=== PATIENT | female | born 1930 | race Caucasian/White ===

== ENCOUNTER 2018-01-26 18:00 | Emergency (ER) | payer MEDICARE, OTHER ==
[2018-01-26 19:23] LABS: Hematocrit 39 % (35-47); Hemoglobin 13.3 g/dl (12.0-16.0); Mean Corpuscular HGB Conc 34 g/dl (31-36); Mean Corpuscular Hemoglobin 29 pg (27-31); Mean Corpuscular Volume 87 fL (80-97); Mean Platelet Volume 7.4 um3 (7.4-10.4); Platelet Count 268 10^3/ul (150-450); Red Blood Count 4.52 10^6/ul (4.00-5.40); Red Cell Distribution Width 15 % (10.5-15); White Blood Count 6.8 10^3/ul (3.5-10.8)
[2018-01-26 19:24] LABS: ABS Basophils 0.1 10^3/ul (0-0.2); ABS Eosinophils 0.1 10^3/ul (0-0.6); ABS Lymphocytes 1.7 10^3/ul (1.0-4.8); ABS Monocytes 0.6 10^3/ul (0-0.8); ABS Neutrophils 4.3 10^3/ul (1.5-7.7)
[2018-01-26 19:34] LABS: Urine Appearance Clear; Urine Blood Negative (Negative); Urine Color Yellow; Urine Ketones Negative (Negative); Urine Protein Negative (Negative); Urine Specific Gravity 1.011 (1.010-1.030); Urine Urobilinogen Negative (Negative)
[2018-01-26 19:37] LABS: EGFR Non-African American 62.6 (>60)
[2018-01-26 20:15] LABS: ABS Nucleated RBC 0 10^3/ul; Eosinophil % 1.4 % (0-6); Lymphocyte % 25.2 % (25-47)
[2018-01-26 20:16] LABS: Nucleated Red Blood Cells % 0
[2018-01-26] MEDS ORDERED: amLODIPine TAB* 5 MG PO ONE ×2 (20:38→21:18)
--- NOTE | 2018-01-26 22:06 | ED ---
Stella Green Elizabeth, scribed for Pascual Garcia MD on 01/26/18 at 1910 . Hypertension - HPI Summary HPI Summary: This patient is an 87 year old F BIBA to [facility] with a chief complaint of hypertension since earlier today. The patient notes that she felt flushed, dizzy , and unwell earlier, then she had an anxiety attack and took Xanax. The patient called the ambulance after she still felt unwell and EMS informed her that she had elevated BP, which is unusual for her. The patient reports that she felt similar symptoms yesterday as well. The patient reports that she felt like she could have passed out. The patient rates the pain 0/10 in severity. Symptoms aggravated by nothing. Symptoms alleviated by nothing. Patient denies weakness or syncope. The patient notes that she has hx of AFib and takes Xarelto and Metoprolol. - History of Current Complaint Chief Complaint: EDHypertension Stated Complaint: POSSIBLE HIGH BP Hx Obtained From: Patient Onset/Duration: Started Hours Ago, Atraumatic, Resolved Timing: Lasting Hours Aggravating Factor(s): Nothing Alleviating Factor(s): Nothing Associated Signs & Symptoms: Dizziness, Other: - feeling flushed - Allergies/Home Medications Allergies/Adverse Reactions: Allergies Allergy/AdvReac Type Severity Reaction Status Date / Time Penicillins Allergy Rash Verified 01/26/18 18:18 phenobarbital Allergy Rash Verified 01/26/18 18:18 Sulfa (Sulfonamide Allergy Rash Verified 01/26/18 18:18 Antibiotics) Home Medications: Home Medications Levothyroxine Sodium 110 mcg PO DAILY 01/26/18 [History Confirmed 01/26/18] Metoprolol Tartrate 50 mg PO DAILY 01/26/18 [History Confirmed 01/26/18] Pepcid 40 mg PO DAILY 01/26/18 [History Confirmed 01/26/18] Prevacid SOLUTAB* 30 mg PO BID 01/26/18 [History Confirmed 01/26/18] Xarelto 20 mg 20 mg PO DAILY 01/26/18 [History Confirmed 01/26/18] Zomig 2.5 mg PO DAILY PRN 01/26/18 [History Confirmed 01/26/18] PMH/Surg Hx/FS Hx/Imm Hx Cardiovascular History: Reports: Hx Atrial Fibrillation Respiratory History: Denies: Hx Chronic Obstructive Pulmonary Disease (COPD) Opthamlomology History: Denies: Hx Legally Blind EENT History: Denies: Hx Deafness Infectious Disease History: No Infectious Disease History: Denies: Traveled Outside the [place] in Last 30 Days - Family History Known Family History: Positive: None - patient denies relevant FHx - Social History Alcohol Use: None Substance Use Type: Reports: None Smoking Status (MU): Never Smoked Tobacco Review of Systems Positive: Skin Diaphoresis - feeling flushed Negative: Epistaxis Negative: Cough Neurological: Other - dizziness Positive: Anxious All Other Systems Reviewed And Are Negative: Yes Physical Exam - Summary Physical Exam Summary: Appearance: Well-appearing, Well-nourished Skin: Warm Eyes: Normal ENT: Normal Neck: Supple, nontender Respiratory: Clear to auscultation Cardiovascular: Regular rate, regular rhythm. Normal S1, S2. Abdomen: Soft, nontender Musculoskeletal: Normal, Strength/ROM Intact Neurological: Normal, A&Ox3 Psychiatric: Normal General: No acute distress Triage Information Reviewed: Yes Vital Signs On Initial Exam: Initial Vitals Temp Pulse Resp BP Pulse Ox 98.8 F 74 16 173/86 98 01/26/18 18:05 01/26/18 18:05 01/26/18 18:05 01/26/18 18:05 01/26/18 18:05 Vital Signs Reviewed: Yes Diagnostics - Vital Signs Vital Signs Temp Pulse Resp BP Pulse Ox 01/26/18 18:05 98.8 F 74 16 173/86 98 - Laboratory Lab Results: Lab Results 01/26/18 01/26/18 01/26/18 Range/Units 19:14 19:14 19:19 WBC 6.8 (3.5-10.8) 10^3/ul RBC 4.52 (4.00-5.40) 10^6/ul Hgb 13.3 (12.0-16.0) g/dl Hct 39 (35-47) % MCV 87 (80-97) fL MCH 29 (27-31) pg MCHC 34 (31-36) g/dl RDW 15 (10.5-15) % Plt Count 268 (150-450) 10^3/ul MPV 7.4 (7.4-10.4) um3 Neut % (Auto) 63.5 (38-83) % Lymph % (Auto) 25.2 (25-47) % [place] % (Auto) 9 H (0-7) % Eos % (Auto) 1.4 (0-6) % Baso % (Auto) 0.9 (0-2) % Absolute Neuts (auto) 4.3 (1.5-7.7) 10^3/ul Absolute Lymphs (auto) 1.7 (1.0-4.8) 10^3/ul Absolute Monos (auto) 0.6 (0-0.8) 10^3/ul Absolute Eos (auto) 0.1 (0-0.6) 10^3/ul Absolute Basos (auto) 0.1 (0-0.2) 10^3/ul Absolute Nucleated RBC 0 10^3/ul Nucleated RBC % 0 Sodium 140 (135-145) mmol/L Potassium 4.4 (3.5-5.0) mmol/L Chloride 102 (101-111) mmol/L Carbon Dioxide 31 (22-32) mmol/L Anion Gap 7 (2-11) mmol/L BUN 23 (6-24) mg/dL Creatinine 0.86 (0.51-0.95) mg/dL Est GFR ( Amer) 75.7 (>60) Est GFR (Non-Af Amer) 62.6 (>60) BUN/Creatinine Ratio 26.7 H (8-20) Glucose 118 H (70-100) mg/dL Calcium 9.0 (8.6-10.3) mg/dL Total Bilirubin 0.30 (0.2-1.0) mg/dL AST 26 (13-39) U/L ALT 14 (7-52) U/L Alkaline Phosphatase 61 (34-104) U/L Total Protein 6.6 (6.4-8.9) g/dL Albumin 3.9 (3.2-5.2) g/dL Globulin 2.7 (2-4) g/dL Albumin/Globulin Ratio 1.4 (1-3) Urine Color Yellow Urine Appearance Clear Urine pH 7.0 (5-9) Ur Specific [place] 1.011 (1.010-1.030) Urine Protein Negative (Negative) Urine Ketones Negative (Negative) Urine Blood Negative (Negative) Urine Nitrate Negative (Negative) Urine Bilirubin Negative (Negative) Urine Urobilinogen Negative (Negative) Ur Leukocyte Esterase 1+ A (Negative) Urine WBC (Auto) Trace(0-5/hpf) (Absent) Urine RBC (Auto) Absent (Absent) Ur Squamous Epith Cells Present A (Absent) Urine Bacteria Absent (Absent) Urine Glucose Negative (Negative) Urine Ascorbic Acid * A (Negative) Result Diagrams: 01/26/18 19:14 01/26/18 19:14 Lab Statement: Any lab studies that have been ordered have been reviewed, and results considered in the medical decision making process. - EKG 19:03 Cardiac Rate: NL - at 69 BPM EKG Rhythm: Sinus Rhythm ST Segment: Normal EKG Interpretation: NSR at 69 bpm, no ST changes Hypertension Course/Dx - Course Course Of Treatment: Pt was anxious today and felt flushed wiht elevated SBP 170 -180's, did take her xanax but did NOT take her PM Toprol, so pt will be d/c'd after BP under control. Pt signed out to Dr Hancock - Diagnoses Provider Diagnoses: Malignant hypertension Discharge - Sign-Out/Discharge Documenting (check all that apply): Discharge/Admit/Transfer - Discharge Plan Condition: Stable Disposition: HOME Discharge Disposition Comment: discharge home Patient Education Materials: Hypertension (ED) Referrals: Yamile Cabello MD [Primary Care Provider] - 2 Days Additional Instructions: Follow up with primary care physician in 2 days. Return to the emergency department with any new or worsening symptoms. - Billing Disposition and Condition Condition: STABLE Disposition: Home The documentation as recorded by the Stella woods Elizabeth accurately reflects the service I personally performed and the decisions made by , Pascual Garcia MD.
--- NOTE | 2018-01-26 22:59 | ED ---
Deysi Green Emily, javieribed for Jenelle Hancock MD on 01/26/18 at 2255 . Progress - Progress Note Progress Note: Patient's blood pressure has improved, and she is stable for discharge home. Course/Dx - Course Course Of Treatment: Pt was anxious today and felt flushed wiht elevated SBP 170 -180's, did take her xanax but did NOT take her PM Toprol. The patient's blood pressure has reduced, and she is stable for discharge home. The patient will be discharged home with follow up from PCP. The patient is agreeable with this plan. - Diagnoses Provider Diagnoses: Malignant hypertension Discharge - Sign-Out/Discharge Documenting (check all that apply): Discharge/Admit/Transfer - Discharge home - Discharge Plan Condition: Stable Disposition: HOME Patient Education Materials: Hypertension (ED) Referrals: Yamile Cabello MD [Primary Care Provider] - 2 Days Additional Instructions: Follow up with primary care physician in 2 days. Return to the emergency department with any new or worsening symptoms. The documentation as recorded by the Deysi woods Emily accurately reflects the service I personally performed and the decisions made by Santi portillo Abdul, MD.
[2018-01-26 23:40] VITALS: BP 163/65
== END 2018-01-26 23:40 | disposition home or self-care (01) ==
LOC: ED 18:00
DX: I10 Essential (primary) hypertension (principal); F41.9 Anxiety disorder, unspecified; I48.91 Unspecified atrial fibrillation; Z79.01 Long term (current) use of anticoagulants; Z88.0 Allergy status to penicillin; Z88.2 Allergy status to sulfonamides; Z88.8 Allergy status to other drugs, medicaments and biological substances
CPT/HCPCS: 36415; 80053; 81003; 81015; 84484; 85025; 87086; 93005; 99284; A9270-GY

== ENCOUNTER 2018-02-26 19:27 | Emergency (ER) | payer MEDICARE, OTHER ==
--- OUTSIDE RECORDS SUMMARY | 2018-02-26 19:52 | XMS REPORT ---
:1930 External Reference #:[id number] Author Organization [employer] Address [address] [place] [address] Phone [phone] Care Team Providers Name Role Phone Yamile Cabello M.D. 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 Family History Date Family Member(s) Problem(s) Comments Father No Current Problems Mother No Current Problems Aunt Macular Degeneration Social History Type Date Description Comments Marital Status Legal Status: Work Status Retired teacher ETOH Use Rarely consumes alcohol Smoking Patient has never smoked Recreational Drug Use Denies Drug Use Daily Caffeine Consumes on average 8oz of iced tea per day Allergies, Adverse Reactions, Alerts Date Description Reaction Status Severity Comments 10/18/2017 Penicillin active 10/18/2017 Sulfa Antibiotics active 10/18/2017 Phenobarbital active Medications Medication Date Status Form Strength Qnty SIG Indications Ordering Provider Prevacid Solutab Active Tablets 30mg Take One Unknown 000 Dispers Tablet By Mouth Twice Daily Zolmitriptan Active Tablets 2.5mg Take One Unknown 000 Tablet By Mouth Every Day as Directed Famotidine Active Tablets 40mg Take One Unknown 000 Tablet By Mouth Every Bedtime Levothyroxine Active Tablets 112mcg Take One Unknown Sodium 000 Tablet By Mouth Every Day Xarelto Active Tablets 20mg Take One Unknown 000 Tablet By Mouth Every Day Metoprolol Active Tablets 50mg Take One Unknown Succinate ER 000 ER 24HR Tablet By Mouth Every Day Xanax Active Tablets 0.25mg Unknown 000 Clarinex Active Tablets 5mg Unknown 000 Medications Administered in Office Medication Date Status Form Strength Qnty SIG Indications Ordering Provider Avastin Administered Injection Michael Bevacizumab Reyna Zuluaga M.D. Avastin Administered Injection Michael Bevacizumab Reyna Zuluaga M.D. Avastin Administered Injection Michael Bevacizumab Reyna Zuluaga M.D. Vital Signs Date Vital Result Comment 01/29/2018 BP Systolic 100 mmHg BP Diastolic 75 mmHg 12/18/2017 BP Systolic 132 mmHg BP Diastolic 68 mmHg Heart Rate 72 /min Respiratory Rate 16 /min 11/13/2017 BP Systolic 151 mmHg BP Diastolic 70 mmHg Heart Rate 64 /min Respiratory Rate 16 /min Results Description No Information Procedures Date CPT Code Description Status 01/29/2018 42572 Injection Intravitreal Of A Pharmacologic Agent Completed 12/18/2017 13275 Injection Intravitreal Of A Pharmacologic Agent Completed 11/13/2017 51062 Injection Intravitreal Of A Pharmacologic Agent Completed 11/07/2017 44780 Scanning Computerized Opthalmic Diagnostic Posterior Completed Seg Retina 11/07/2017 26523 New Patient Comprehensive Exam Completed Plan of Care 02/11/2018 - Michael Zuluaga M.D.[id number] Exdtve age-rel mclr degn, left eye, with actv chrdl neovasComments:Smoking can increase the risk of developing or worsening any eye related disease, as well as affect your overall health. If you are a smoker, we strongly recommend that you quit.If you are not a smoker, we strongly recommend that you do not start. Dr. Zuluaga can detect changes in your Macular Degeneration that require treatment in your left eye. It is very important to keep all of your appointments and follow Dr. Zuluaga's instructions. If you have any questions, please call our office.Follow up:See Procedure Order [id number] Nexdtve age-related mclr degn, right eye, intermed dry stageComments:You have Macular Degeneration. Check your Amsler Grid, with each eye separately, and take the AREDS II formula vitamins. If you notice any changes in your vision, please call the office and schedule anappointment to see any of the doctors here.H35.81 Retinal edema
[2018-02-26] MEDS ORDERED: Morphine VIAL* 4 MG/ML VIAL (1 ml vial) IV ONE ×2 (22:04→23:30)
[2018-02-26] MEDS ORDERED: Metoclopramide IV* 5 MG/ML 2 ML VIAL IV SLOW PU ONE (22:04)
[2018-02-26] MEDS ORDERED: diPHENhydraMINE IV* 50 MG/ML 1 ml VIAL (BENADRYL) SLOW PUSH ONE (22:04)
[2018-02-26] MEDS ORDERED: Labetalol IV* 5 MG/ML 20 ML VIAL IV PUSH ONE (22:05)
--- NOTE | 2018-02-26 22:06 | ED ---
Headache - HPI Summary HPI Summary: This is chuck Elizondo documenting for attending Dr. Santi Beaulieu This patient is an 88 year old F presenting to [facility] with a chief complaint of KENNEDY since 02/24/18. PMHx migraines. Pt states she took Zomig 02/24/18 , pain came back next day, so she took it again, but with little sx alleviations this time. She endorses 3x days of HAs unusual for her regarding migraines. She notes the KENNEDY is located on the left sided parietal and occipital regions. Pt denies N/V, weakness, numbness, photophobia. PMHx HTN, Afib. Pt lives alone at [facility]. Blood pressure currently at 214/83. - History Of Current Complaint Chief Complaint: EDHeadache Stated Complaint: HEADACHE Time Seen by Provider: 02/26/18 21:43 Hx Obtained From: Patient Onset/Duration: Started days ago, Still Present Initially Headache Was: Moderate Currently Pain Is: Current Pain Scale(0-10)= - 7 Timing: Constant Character: Migraine Location of Headache: Parietal, Occipital Aggravating Factor: Nothing Allevating Factors: Medication - zomig, less help than usual though - Allergies/Home Medications Allergies/Adverse Reactions: Allergies Allergy/AdvReac Type Severity Reaction Status Date / Time Penicillins Allergy Rash Verified 01/26/18 18:18 phenobarbital Allergy Rash Verified 01/26/18 18:18 Sulfa (Sulfonamide Allergy Rash Verified 01/26/18 18:18 Antibiotics) Home Medications: Home Medications Famotidine TAB 40 MG(NF) [Pepcid TAB 40 MG(NF)] 40 mg PO DAILY 02/26/18 [ History Confirmed 02/26/18] Lansoprazole CAP (NF) [Prevacid CAP (NF)] 30 mg PO BID 02/26/18 [History Confirmed 02/26/18] Levothyroxine TAB* [Synthroid TAB*] 100 mcg PO DAILY 02/26/18 [History Confirmed 02/26/18] Metoprolol Succinate XL TAB* [Toprol XL TAB*] 50 mg PO DAILY 02/26/18 [History Confirmed 02/26/18] Rivaroxaban TAB(*) [Xarelto 20 mg] 20 mg PO DAILY 02/26/18 [History Confirmed ] ZOLMitriptan [Zomig] 2.5 mg PO DAILY PRN 02/26/18 [History Confirmed 02/26/18] PMH/Surg Hx/FS Hx/Imm Hx Cardiovascular History: Reports: Hx Atrial Fibrillation Respiratory History: Denies: Hx Chronic Obstructive Pulmonary Disease (COPD) Sensory History: Reports: Hx Contacts or Glasses Denies: Hx Legally Blind, Hx Deafness Opthamlomology History: Reports: Hx Contacts or Glasses Denies: Hx Legally Blind EENT History: Denies: Hx Deafness Neurological History: Reports: Hx Migraine - Immunization History Date of Tetanus Vaccine: utd Date of Influenza Vaccine: fall 2016 Infectious Disease History: No Infectious Disease History: Denies: Traveled Outside the [place] in Last 30 Days - Family History Known Family History: Positive: None - patient denies relevant FHx - Social History Occupation: Retired Lives: Alone Alcohol Use: None Substance Use Type: Reports: None Smoking Status (MU): Never Smoked Tobacco Review of Systems Negative: Fever Negative: Photophobia Negative: Vomiting, Nausea Positive: Headache. Negative: Weakness, Numbness All Other Systems Reviewed And Are Negative: Yes Physical Exam - Summary Physical Exam Summary: VITAL SIGNS: Reviewed. GENERAL: Patient is a well-developed and nourished (MALE OR FEMALE) who is lying comfortable in the stretcher. Patient is not in any acute respiratory distress. HEAD AND FACE: No signs of trauma. No ecchymosis, hematomas or skull depressions. No sinus tenderness. No temporal tenderness. EYES: PERRLA, EOMI x 2, No injected conjunctiva, no nystagmus. EARS: Hearing grossly intact. Ear canals and tympanic membranes are within normal limits. MOUTH: Oropharynx within normal limits. NECK: Supple, trachea is midline, no adenopathy, no JVD, no carotid bruit, no c- spine tenderness, neck with full ROM. CHEST: Symmetric, no tenderness at palpation LUNGS: Clear to auscultation bilaterally. No wheezing or crackles. CVS: Regular rate and rhythm, S1 and S2 present, no murmurs or gallops appreciated. ABDOMEN: Soft, non-tender. No signs of distention. No rebound no guarding, and no masses palpated. Bowel sounds are normal. EXTREMITIES: FROM in all major joints, no edema, no cyanosis or clubbing. NEURO: Alert and oriented x 3. No acute neurological deficits. Speech is normal and follows commands. SKIN: Dry and warm Triage Information Reviewed: Yes Vital Signs On Initial Exam: Initial Vitals Temp Pulse Resp BP Pulse Ox 98.2 F 70 16 187/81 98 02/26/18 19:36 02/26/18 19:36 02/26/18 19:36 02/26/18 19:36 02/26/18 19:36 Vital Signs Reviewed: Yes Diagnostics - Vital Signs Vital Signs Temp Pulse Resp BP Pulse Ox 02/26/18 19:36 98.2 F 70 16 187/81 98 - Laboratory Lab Statement: Any lab studies that have been ordered have been reviewed, and results considered in the medical decision making process. - CT Brain CT Interpretation: No Acute Changes CT Interpretation Completed By: ED Physician - No acute abnormalities. Re-Evaluation - Re-Evaluation First Eval Re-Evaluation Time: 00:00 Change: Improved Comment: KENNEDY improved a lot. BP improved. Headache Course/Dx - Course Course Of Treatment: An 88-year-old F presents to the ED with a CC of KENNEDY for 3 days. (+) "intense" pain, located left sided parietal and occipital. (-) N/V, photophobia, weakness, numbness. PMHx migraines, AFib, HTN. A CT brain reveals no acute abnormalities. In the ED course, pt was given benadryl, trandate, reglan, morphine. - Diagnoses Provider Diagnoses: Headache, Hypertension Discharge - Sign-Out/Discharge Documenting (check all that apply): Patient Departure - discharge - Discharge Plan Condition: Stable Disposition: HOME Patient Education Materials: General Headache (ED), Hypertension (ED) Referrals: Yamile Cabello MD [Primary Care Provider] - 2 Days Additional Instructions: Return to the emergency department for any new or worsening symptoms. You are advised to increase your metoprolol dose from 50 mg to 75 mg. - Billing Disposition and Condition Condition: STABLE Disposition: Home
[2018-02-26] MEDS ORDERED: Morphine INJ* 2 MG/ML 1 ML SYRINGE (TWO MG - NEW SYRINGE VERSION) ONE (22:19)
[2018-02-26 22:54] LABS: ABS Basophils 0.1 10^3/ul (0-0.2); ABS Eosinophils 0.1 10^3/ul (0-0.6); ABS Lymphocytes 2.7 10^3/ul (1.0-4.8); ABS Monocytes 0.9 10^3/ul (0-0.8); ABS Neutrophils 5.7 10^3/ul (1.5-7.7); ABS Nucleated RBC 0 10^3/ul; Eosinophil % 1.1 % (0-6); Hematocrit 40 % (35-47); Hemoglobin 13.3 g/dl (12.0-16.0); Lymphocyte % 28.7 % (25-47); Mean Corpuscular HGB Conc 33 g/dl (31-36); Mean Corpuscular Hemoglobin 29 pg (27-31); Mean Corpuscular Volume 87 fL (80-97); Mean Platelet Volume 7.3 um3 (7.4-10.4); Nucleated Red Blood Cells % 0; Platelet Count 254 10^3/ul (150-450); Red Blood Count 4.57 10^6/ul (4.00-5.40); Red Cell Distribution Width 14 % (10.5-15); White Blood Count 9.4 10^3/ul (3.5-10.8)
[2018-02-26 23:02] LABS: INR 1.76 (0.77-1.02)
[2018-02-26 23:10] LABS: EGFR Non-African American 74.2 (>60)
[2018-02-27 00:17] VITALS: BP 130/66
--- NOTE | 2018-02-27 07:46 | RAD ---
INDICATION: Headaches COMPARISON: None TECHNIQUE: Noncontrast axial source images were acquired from the skull base to the vertex. FINDINGS: Ventricles/sulci: The ventricles and cisterns are normal in size and configuration for age. Brain parenchyma: There is no focal parenchymal finding, evidence of intracranial mass, or intracranial mass effect. There are minor chronic microvascular ischemic changes. Intracranial hemorrhage:None. Extra-axial spaces: There are no abnormal extra axial fluid collections or evidence of extra-axial mass. Calvarium: There is no calvarial fracture or other calvarial abnormality. Scalp: There is no evidence of scalp or extracalvarial soft tissue abnormality. Paranasal sinuses/mastoid: The paranasal sinuses and mastoid air cells are clear. Other: None. IMPRESSION: NO ACUTE INTRACRANIAL FINDINGS.
== END 2018-02-27 00:43 | disposition home or self-care (01) ==
LOC: ED 19:27
DX: R51 Headache (principal); I10 Essential (primary) hypertension
CPT/HCPCS: 36415; 70450; 80053; 85025; 85610; 85730; 96374; 96375; 99284; J1200; J2270; J2765

== ENCOUNTER 2019-08-26 13:34 | Emergency (ER) | payer MEDICARE, OTHER ==
[2019-08-26 13:59] LABS: ABS Eosinophils 0.1 10^3/ul (0-0.6); ABS Lymphocytes 1.8 10^3/ul (1.0-4.8); ABS Monocytes 0.5 10^3/ul (0-0.8); ABS Neutrophils 3.9 10^3/ul (1.5-7.7); Eosinophil % 2.2 %; Hematocrit 36 % (35-47); Hemoglobin 12.1 g/dL (12.0-16.0); Mean Corpuscular HGB Conc 34 g/dL (31-36); Mean Corpuscular Hemoglobin 30 pg (27-31); Mean Corpuscular Volume 91 fL (80-97); Mean Platelet Volume 7.2 fL (7.4-10.4); Platelet Count 256 10^3/uL (150-450); Red Blood Count 3.99 10^6 /uL (3.70-4.87); Red Cell Distribution Width 14 % (10-15); White Blood Count 6.5 10^3/uL (3.5-10.8)
[2019-08-26 14:03] LABS: INR 1.07 (0.82-1.09)
--- NOTE | 2019-08-26 14:05 | ED ---
HPI Chest Pain - HPI Summary HPI Summary: The patient is an 89 y/o female presenting to [facility] accompanied by son with a chief complaint of right anterior CP onset around 11:00 this morning but has since resolved in the last hour and a half. She reports that she had been out running errands this morning and then once she got home, she developed an intermittent throbbing sensation in the right chest that lasted for approximately two hours before completely resolving. She had Tylenol to no relief, and she also took Xanax, which may have helped to relieve the pain. She denies any SOB with the episodes. She does not usually experience CP with ambulating. She has not experienced this pain before. She has a history of atrial fibrillation, but this pain was different. She has not had a recent stress test, but she had negative results the last time she had one. Her special delivery messenger is Dr. Pittman, who she has an appointment with in October 2019. PMHx : Xarelto use, cancer of the lung, thyroid, and colon. Nonsmoker, no EtOH, no substance use. Medications reviewed. Allergies noted. - History of Current Complaint Chief Complaint: EDChestWallPain Time Seen by Provider: 08/26/19 13:48 Hx Obtained From: Patient Onset/Duration: Started Hours Ago, Resolved Time of Onset: 11:00 Timing: Intermittent Initial Severity: Moderate Current Severity: None Pain Intensity: 0 Pain Scale Used: 0-10 Numeric Chest Pain Location: Right Anterior Chest Pain Radiates: No Character: Other: - throbbing Aggravating Factor(s): Nothing Alleviating Factor(s): Other: - 1/2 Xanax may have helped Associated Signs and Symptoms: Positive: Chest Pain. Negative: Shortness of Breath - Allergy/Home Medications Allergies/Adverse Reactions: Allergies Allergy/AdvReac Type Severity Reaction Status Date / Time Penicillins Allergy Rash Verified 06/19/19 10:19 phenobarbital Allergy Rash Verified 06/19/19 10:19 Sulfa (Sulfonamide Allergy Rash Verified 06/19/19 10:19 Antibiotics) Home Medications: Home Medications Desloratadine/Pseudoephedrine [Clarinex-D 12 Hour] 1 tab PO DAILY PRN 08/26/19 [ History Confirmed 08/26/19] Lansoprazole CAP (NF) [Prevacid CAP (NF)] 30 mg PO BID 08/26/19 [History Confirmed 08/26/19] Levothyroxine TAB* [Synthroid TAB*] 88 mcg PO QAM 08/26/19 [History Confirmed ] Metoprolol Succinate XL TAB* [Toprol XL TAB*] 50 mg PO DAILY 08/26/19 [History Confirmed 08/26/19] ZOLMitriptan [Zomig] 2.5 mg PO BID PRN 08/26/19 [History Confirmed 08/26/19] PMH/Surg Hx/FS Hx/Imm Hx Endocrine/Hematology History: Denies: Hx Diabetes Cardiovascular History: Reports: Hx Atrial Fibrillation, Other Cardiovascular Problems/Disorders - 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 Denies: Hx Hypertension, Hx Pacemaker/ICD Respiratory History: Denies: Hx Chronic Obstructive Pulmonary Disease (COPD) History: Denies: Hx Dialysis Musculoskeletal History: Reports: Other Musculoskeletal History - cervical Sensory History: Reports: Hx Contacts or Glasses, Hx Macular Degeneration, Hx Hearing Aid - have new hearing aides Denies: Hx Legally Blind, Hx Deafness Opthamlomology History: Reports: Hx Contacts or Glasses, Hx Macular Degeneration Denies: Hx Legally Blind Neurological History: Reports: Hx Migraine Comment Only: Other Neuro Impairments/Disorders - PAIN CLINIC PT Psychiatric History: Reports: Hx Anxiety Denies: Hx Panic Disorder - Cancer History Cancer Type, Location and Year: LUNG, THYROID, COLON Hx Chemotherapy: No Hx Radiation Therapy: No - Surgical History Surgery Procedure, Year, and Place: HYSTERECTOMY. 1990 COLON RESECTION - CANCER. 2013 THYROIDECTOMY- CANCER. 2013 - TUMOR - REMOVED FROM Lt.LUNG - ENCAPSULATED - CANCER - NO FURHTER TREATMENT NEEDED - Immunization History Date of Tetanus Vaccine: utd Date of Influenza Vaccine: fall 2016 Infectious Disease History: No Infectious Disease History: Denies: Traveled Outside the [place] in Last 30 Days - Family History Known Family History: Negative: Cardiac Disease, Hypertension, Diabetes - Social History Alcohol Use: None Hx Substance Use: No Substance Use Type: Reports: None Hx Tobacco Use: No Smoking Status (MU): Never Smoked Tobacco Review of Systems Positive: Chest Pain - right anterior throbbing (resolved) Negative: Shortness Of Breath All Other Systems Reviewed And Are Negative: Yes Physical Exam - Summary Physical Exam Summary: Constitutional: Well-developed, Well-nourished, Alert. (-) Distressed Skin: Warm, Dry HENT: Normocephalic; Atraumatic Eyes: Conjunctiva normal Neck: Musculoskeletal ROM normal neck. (-) JVD, (-) Stridor, (-) Nuchal rigidity Cardio: Rhythm regular, rate normal, Heart sounds normal; Intact distal pulses; Radial pulses are 2+ and symmetric. (-) Murmur Pulmonary/Chest wall: Effort normal. (-) Respiratory distress, (-) Wheezes, (-) Rales Abd: Soft, (-) tenderness, (-) Distension, (-) Guarding, (-) Rebound Musculoskeletal: (-) Edema Lymph: (-) Cervical adenopathy Neuro: Alert, Oriented x3 Psych: Mood and affect Normal Triage Information Reviewed: Yes Vital Signs On Initial Exam: Initial Vitals Temp Pulse Resp BP Pulse Ox 97.9 F 69 16 172/60 98 08/26/19 13:40 08/26/19 13:40 08/26/19 13:40 08/26/19 13:40 08/26/19 13:40 Vital Signs Reviewed: Yes Procedures - Sedation Patient Received Moderate/Deep Sedation with Procedure: No Diagnostics - Vital Signs Vital Signs Temp Pulse Resp BP Pulse Ox 08/26/19 13:40 97.9 F 69 16 172/60 98 - Laboratory Result Diagrams: 08/26/19 13:43 08/26/19 13:43 Lab Statement: Any lab studies that have been ordered have been reviewed, and results considered in the medical decision making process. - Radiology CXR Radiology Interpretation Completed By: Radiologist Summary of Radiographic Findings: Impression: 1. Postsurgical changes, no evidence for acute finding. 2. COPD. ED physician has reviewed this report. - EKG 1336 Cardiac Rate: NL - 66 BPM EKG Rhythm: Sinus Rhythm EKG Comparison: No Significant Change - Compared to 01/26/18, no significant change Summary of EKG Findings: An EKG at 1336 reveals normal sinus rhythm at 66 BPM, T -wave inversions in lead III. Compared to 01/26/18, no significant change. ED physician has reviewed and interpreted this EKG. 1711 Cardiac Rate: NL - 66 BPM EKG Rhythm: Sinus Rhythm Summary of EKG Findings: An EKG at 1711 reveals normal sinus rhythm at 66 BPM, no new changes from previous. ED physician has reviewed and interpreted this EKG. Re-Evaluation - Re-Evaluation First Eval Re-Evaluation Time: 15:50 Comment: patient becoming hypertensive, will administer home meds Second Eval Re-Evaluation Time: 17:25 Comment: neg repeat trop, discussed d/c plan Chest Pain Course/Dx - Course Course Of Treatment: 89 y/o F w hx HTN p/w episode of R sided CP that occured at rest. On arrival to ED, BP elevated but denies CP. Last episode of CP around 1 PM. - ddx includes: most likely atypical CP. ACS - no new EKG changes, occured at rest, trop neg x2. Patient does not want to stay for further workup, was willing to stay for second troponin. Lower suspicion. PNA -no leukocytosis , no cough, no PNA on xray. Dissection - does not describe typical tearing CP, CXR w/o mediastinal widening, low suspicion. PTX - CXR w/o PTX, no GEMMA. Patient did not have any further episodes of CP, discharged to home w son. - Diagnoses Provider Diagnoses: Chest pain, Hypertension Discharge ED - Sign-Out/Discharge Documenting (check all that apply): Patient Departure - Patient will be discharged home. - Discharge Plan Condition: Stable Disposition: HOME Patient Education Materials: Chest Pain (ED), Hypertension (ED) Referrals: Taylor Jean MD [Primary Care Provider] - 3 Days Additional Instructions: You were seen in the emergency department for chest pain. Your EKG (heart tracing), labs and chest x-ray did not show any cause for pain. Important that you follow up with you primary care doctor in the next 1-2 days to help schedule an outpatient stress test. Please return to the emergency department for continued chest pain, trouble breathing, passing out, or if you're concerned. . - Billing Disposition and Condition Condition: STABLE Disposition: Home - Attestation Statements Document Initiated by Scribe: Yes Documenting Scribe: Inocencia Ellison Provider For Whom Maira is Documenting (Include Credential): Dr. Yolanda Orozco MD Scribe Attestation: Inocencia Green scribed for Dr. Yolanda Orozco MD on 08/27/19 at 2123. Scribe Documentation Reviewed: Yes Provider Attestation: The documentation as recorded by the Inocencia woods accurately reflects the service I personally performed and the decisions made by me, Dr. Yolanda Orozco MD Status of Scribe Document: Viewed
[2019-08-26 14:11] LABS: Albumin 3.8 g/dL (3.2-5.2); Albumin/Globulin Ratio 1.5 (1-3); BUN/Creatinine Ratio 25.3 (8-20); Calcium 8.6 mg/dL (8.6-10.3); EGFR African American 88.2 (>60); EGFR Non-African American 72.9 (>60); Globulin 2.6 g/dL (2-4); Potassium 4.6 mmol/L (3.5-5.0); Total Bilirubin 0.3 mg/dL (0.2-1.0); Total Protein 6.4 g/dL (6.4-8.9); Troponin I 0.01 ng/mL (<0.03)
[2019-08-26] MEDS ORDERED: Losartan TAB* 25 MG PO ONE (15:53)
[2019-08-26] MEDS ORDERED: Metoprolol Succinate XL TAB* 50 MG PO ONE (15:53)
[2019-08-26 16:58] VITALS: BP 199/74
== END 2019-08-26 17:33 | disposition home or self-care (01) ==
LOC: ED 13:34
DX: R07.89 Other chest pain (principal); J44.9 Chronic obstructive pulmonary disease, unspecified; I10 Essential (primary) hypertension; F41.9 Anxiety disorder, unspecified; Z85.850 Personal history of malignant neoplasm of thyroid; Z85.038 Personal history of other malignant neoplasm of large intestine; Z85.118 Personal history of other malignant neoplasm of bronchus and lung; Z88.0 Allergy status to penicillin; Z88.2 Allergy status to sulfonamides; Z88.8 Allergy status to other drugs, medicaments and biological substances
CPT/HCPCS: 36415; 71046; 80053; 84484; 85025; 85610; 93005; 99283; A9270-GY